=== PATIENT | male | born 2000 | race Two or more races ===

== ENCOUNTER 2020-01-30 11:01 | Emergency (ER) | payer OTHER ==
[~2020-01-30] VITALS: Ht 170.2 cm; Wt 89.0 kg
[2020-01-30] MEDS ORDERED: LIDOCAINE 1% 10 ML VIAL INJ ONE (11:45)
[2020-01-30] MEDS ORDERED: PERTUSS(ACELL),DIPH,TET VAC/PF 0.5 ML VIAL IM ONE (11:45)
[2020-01-30 13:00] VITALS: BP 157/87
== END 2020-01-30 13:15 | disposition home or self-care (01) ==
LOC: EMS 11:02
DX: S61.412A Laceration without foreign body of left hand, initial encounter (principal); E11.9 Type 2 diabetes mellitus without complications; W26.0XXA Contact with knife, initial encounter; Y93.89 Activity, other specified; Y92.89 Other specified places as the place of occurrence of the external cause; Y99.8 Other external cause status
CPT/HCPCS: 12001; 90471; 90715; 99283; J3490